=== PATIENT | male | born 1965 ===

== ENCOUNTER 2020-11-11 14:21 | Emergency (ER) | payer SELFPAY ==
[2020-11-11 14:23] VITALS: BP 146/98; PULSE 118; RESP 18; TEMP 37.2; O2SAT 99
[2020-11-11 15:31] VITALS: BP 127/89; PULSE 106; RESP 18; O2SAT 99
--- NOTE | 2020-11-11 15:31 | PC.NURSE ---
Patient walked out of ED without difficulty and in no distress at this time. Vital signs stable
== END 2020-11-11 15:31 | disposition left against medical advice (07) ==
LOC: ANHED 15:38
DX: Z53.21 Procedure and treatment not carried out due to patient leaving prior to being seen by health care provider (principal)
CPT/HCPCS: 99199